=== PATIENT | male | born 1960 | race Caucasian/White ===

== ENCOUNTER 2016-04-06 17:56 | Emergency (ER) | payer OTHER ==
--- NOTE | 2016-04-06 18:43 | CT ---
CT BRAIN: DATE: 04/06/16. PROVIDED CLINICAL HISTORY: Headache and confusion. FINDINGS: The ventricular system appears normal in size and morphology. There is no evidence for intracranial hemorrhage or mass effect. The extracranial soft tissues and osseous structures demonstrate no acu te abnormality. IMPRESSION: No evidence for intracranial hemorrhage or mass effect. POS: KATHARINE
[2016-04-06] MEDS ORDERED: Labetalol HCl 100 MG/20 ML VIAL ONE (18:48)
[2016-04-06 18:49] LABS: #Basophils 0.1 thou/uL (0.0-0.2); #Eosinphils 0.2 thou/uL (0.0-0.7); #Lymphocytes 2.1 thou/uL (1.20-3.40); #Monocytes 0.7 thou/uL (0.11-0.59); #Neutrophils 7.9 thou/uL (1.40-6.50); %Basophils 1.3 % (0.0-1.0); %Lymphocytes 18.8 % (21.0-51.0); Hematocrit 44.9 % (42.0-52.0); Mean Platelet Volume 8.8 fL (7.4-10.4); Red Blood Cell (RBC) Count 5.09 mill/uL (4.70-6.10)
[2016-04-06 19:11] LABS: ALT (SGPT) 20 U/L (0-55); AST (SGOT) 14 U/L (5-34); Alkaline Phosphatase 79 U/L (40-150); Anion Gap 17 mmol/L (10-20); BUN (Urea Nitrogen) 12 mg/dL (8.4-25.7); Bilirubin, Total 1.2 mg/dL (0.2-1.2); Calc. Creatinine Clearance 0 mL/min (70-130); Carbon Dioxide 23 mmol/L (22-29); Chloride 102 mmol/L (98-107); Estimated GFR-MDRD Greater than 90; Globulin 3.2 g/dL (2.4-3.5); Protein, Total 7.2 g/dL (6.0-8.3)
[2016-04-06 19:12] LABS: Troponin I 0.025 ng/mL (< 0.028)
--- NOTE | 2016-04-06 20:20 | ERRECORD ---
[facility] EMERGENCY RECORD HPI CVA (19:01 BPIC) CHIEF COMPLAINT: Patient presents for evaluation of confusion, Patient presents for evaluation of speech difficulties. HISTORIAN: History provided by patient, pt woke up this morning and went to work and felt confused throughout the morning. One client spoke to him on the phone, then called the patient's daughter to tell her to check on her dad because he was confused. He took 6 aspirin this morning because of the symptoms and then went to sleep. when he awoke, his headache was slightly better, but still felt confused. He continues to have a headache. no motor or sensory complaints, but daughters state that he still is confused. TIME COURSE: Sudden onset of symptoms, There has been no change in the patient's symptoms over time. NIHSS: CVA assessment findings: Level of consciousness: alert, keenly responsive (0), Questions: answers both questions correctly (0), Commands: performs both tasks correctly (0), Best gaze: normal (0), Visual: no visual loss (0), Facial palsy: normal symmetrical movement (0), Motor Left Arm: no drift, arm stays 90/45 degrees for full 10 seconds (0), Motor Right Arm: no drift, arm stays 90/45 degrees for full 10 seconds (0), Motor left leg: no drift, leg stays at 30 degrees for full five seconds (0), Motor right leg: no drift, leg stays at 30 degrees for full five seconds (0), Limb ataxia: present in one limb (1), Sensory: normal, no sensory loss (0), Best language: mild to moderate aphasia; some obvious loss of fluency or facility of comprehension without significant limitation on ideas expressed or form of expression. Reduction of speech and/or comprehension, however, makes conversation about provided material difficult or impossible (1), Dysarthria: mild to moderate: patient slurs at least some words and, at worst, can be understood with some difficulty (1), Extinction and Inattention: normal (0), Total score 3. CRITICAL CARE: Time spent providing critical care to patient was 30-74 minutes, 35 minutes, labetalol given for hypertension and confusion with possibility of irreversible damage to brain. asa was taken prior to arrival. ROS (19:10 BPIC) CONSTITUTIONAL: Negative constitutional review of systems, Historian denies chills, denies fever. EYES: Negative eye review of systems. ENT: Negative ears, nose, throat review of systems. CARDIOVASCULAR: Negative cardiovascular review of systems, Historian denies chest pain, denies palpitations. RESPIRATORY: Negative respiratory review of systems, Historian denies cough, denies shortness of breath. GI: Negative gastrointestinal review of systems, Historian denies abdominal pain, denies constipation, denies diarrhea. MUSCULOSKELETAL: Negative musculoskeletal review of systems. SKIN: Negative skin review of systems. &a-1R&a+25V*p+0X*[id number]*c202B*c15G*c2P*p-0X&a-25V&a+1R Name: Kan Garcia : 1960 M55 MedRec: [id number] AcctNum: [id number] Prepared: MonApr 06, 2016 21:52 by Interface Page 1 of 4 pMD [facility] EMERGENCY RECORD NEUROLOGIC: Historian reports confusion, reports dysphasia, reports headache. ENDOCRINE: Negative endocrine review of systems. HEMO/LYMPHATIC: Normal hematologic/lymphatic system review. PSYCHIATRIC: Negative psychiatric review of systems. NOTES: All other ROS is negative except as listed in HPI. PAST MEDICAL HISTORY MEDICAL HISTORY: Flu vaccine not up to date, Tetanus not up to date, Pneumococcal vaccine not up to date, Past medical history includes history of hypertension. (18:05 MSPE) MALE SURGICAL HISTORY: Patient has no surgical history. (18:05 MSPE) PSYCHIATRIC HISTORY: No previous psychiatric history. (18:05 MSPE) SOCIAL HISTORY: Patient drinks socially, Patient denies drug use, Patient currently uses tobacco, chews tobacco. (18:05 MSPE) NOTES: I have reviewed and agree with the PMH/PSxH/FamHx/SocHx obtained by the nurse. (19:10 BPIC) KNOWN ALLERGIES No Known Drug Allergies CURRENT MEDICATIONS (18:01 MSPE) None VITAL SIGNS VITAL SIGNS: BP: 199/133, Pulse: 98, Resp: 21, Temp: 99.5 (Oral), Pain: 8, O2 sat: 96 on Room Air, Time: 04/06/2016 18:02. (18:02 MSPE) BP: 210/114, Pulse: 98, Resp: 23, O2 sat: 96 on Room Air, Time: 04/06/2016 18:34. (18:34 MSPE) BP: 205/115, Pulse: 97, Resp: 20, O2 sat: 96 on Room Air, Time: 04/06/2016 18:50. (18:50 MSPE) BP: 194/109, Pulse: 94, Resp: 22, O2 sat: 95 on Room Air, Time: 04/06/2016 19:00. (19:00 EPIE) BP: 194/109, Pulse: 92, Resp: 22, O2 sat: 96 on Room Air, Time: 04/06/2016 19:10. (19:10 EPIE) BP: 205/115, Pulse: 95, Resp: 22, O2 sat: 95 on Room Air, Time: 04/06/2016 19:20. (19:20 EPIE) BP: 184/99, Pulse: 90, Resp: 22, O2 sat: 96 on Room Air, Time: 04/06/2016 19:45. (19:45 EPIE) Temp: 98.9 (Oral), Pain: 5, Time: 04/06/2016 20:00. (20:00 EPIE) PHYSICAL EXAM (19:10 BPIC) CONSTITUTIONAL: Vital signs reviewed, Patient appears non toxic, Patient alert and oriented to person, place and time, Pt is in no apparent distress. HEAD: Head exam included findings of head atraumatic, &a-1R&a+25V*p+0X*[id number]*c202B*c15G*c2P*p-0X&a-25V&a+1R Name: Kan Garcia : 1960 M55 MedRec: [id number] AcctNum: [id number] Prepared: MonApr 06, 2016 21:52 by Interface Page 2 of 4 pMD [facility] EMERGENCY RECORD normocephalic. EYES: Eye exam included findings of eyelids normal to inspection, Pupils equally round and reactive to light, Extraocular muscles intact. ENT: ENT exam normal, Nose exam normal, no nasal deformity, no bleeding from nares, Pharynx exam normal, Mouth exam normal, mucous membranes moist. NECK: Neck exam included findings of normal range of motion, Trachea midline. RESPIRATORY CHEST: Respiratory and chest exam normal, Breath sounds clear, No wheezing, No rales, Chest exam included findings of chest movement symmetrical, Chest expansion equal. CARDIOVASCULAR: Cardiovascular assessment normal, Cardiovascular exam included findings of heart rate regular rate and rhythm, Heart sounds normal. ABDOMEN MALE: Abdominal exam included findings of abdomen nontender, Bowel sounds normal, no mass, no pulsatile masses, no peritoneal signs, no rigidity, no guarding, no rebound. BACK: Back exam included findings of normal inspection, range of motion normal, no costovertebral angle tenderness. UPPER EXTREMITY: Upper extremity exam included findings of inspection normal, Range of motion normal. LOWER EXTREMITY: Lower extremity exam included findings of inspection normal, Range of motion normal. NEURO: Neuro exam findings include patient oriented to person, place and time, Speech, slurred, with expressive aphasia, difficulty finding correct words, Cerebellar deficits include, Finger to nose abnormal, left arm with intention tremor, Neuro exam findings include patient oriented to person, place and time, no focal motor deficits, no focal sensory deficits. SKIN: Skin exam included findings of skin warm, dry, and normal in color. LYMPHATIC: Lymphatic exam normal. PSYCHIATRIC: Psychiatric exam included findings of patient oriented to person place and time, Normal affect. EKG INTERPRETATION (21:48 BPIC) 12 LEAD EKG INTERPRETATION: 12 lead EKG shows normal sinus rhythm, Rate (beats per minute): 96, with no ectopics, ST segments normal, Other findings include:, left ventricular hypertrophy, left atrial enlargement, prolonged QTc, Clinical impression:, non-specific EKG. RADIOLOGYINTERPRETATION (21:48 BPIC) HEAD: Head CT negative, without contrast. MEDICATION ADMINISTRATION SUMMARY Drug Name: labetalol intravenous, Dose Ordered: 10 mg, Route: IV &a-1R&a+25V*p+0X*[id number]*c202B*c15G*c2P*p-0X&a-25V&a+1R Name: Kan Garcia : 1960 M55 MedRec: [id number] AcctNum: [id number] Prepared: MonApr 06, 2016 21:52 by Interface Page 3 of 4 pMD [facility] EMERGENCY RECORD Push, Status: Given, Time: 18:54 04/06/2016, Detailed record available in Medication Service section. DOCTOR NOTES (19:41 BPIC) TEXT: ANAIS Sanders, ERMD accepted transfer. Need for neuro services. not a tpa candidate because outside of time window Diagnosis and plan have been discussed with the patient. The patient understands the treatment plan and all questions have been answered. A transfer will be done to a facility that has a higher level of care and additional media sales consultant capabilities. PROBLEM LIST No recorded problems DIAGNOSIS (19:41 BPIC) FINAL: PRIMARY: slurred speech, ADDITIONAL: confusion, hypertension, rule out stroke. PRESCRIPTION No recorded prescriptions DISPOSITION PATIENT: Disposition Type: Transfer, Disposition: Transfer to [facility], Condition: Guarded. (19:41 BPIC) Patient left the department. (20:08 EPIE) Bellamy: BPIC=MD Alfredo, Taj EPIE=ITALO Barrett, Haritha MSPE=ITALO Corbin, Paulina &a-1R&a+25V*p+0X*[id number]*c202B*c15G*c2P*p-0X&a-25V&a+1R Name: Kan Garcia : 1960 M55 MedRec: [id number] AcctNum: [id number] Prepared: MonApr 06, 2016 21:52 by Interface Page 4 of 4 pMD MTDD
--- NOTE | 2016-04-06 20:23 | PICIS ---
[facility] EMERGENCY RECORD TRIAGE (18:00 MSPE) TRIAGE NOTES: sts started feeling bad at 0800 today. Reports "bad headache" and nausea. (18:00 MSPE) PATIENT: NAME: Kan Garcia, AGE: 55, GENDER: male, : Josie 1960, TIME OF GREET: MonApr 06, 2016 17:57, PREFERRED LANGUAGE: Thai, ECODE BILLING MAP: [facility], SSN: [id number], Zip Code: [address], KG WEIGHT: [phone], PHONE: , , , PERSON ID: [id number], PCP: none. (18:00 MSPE) COMPLAINT: CONFUSION,SLURRED SPEECH. (18:00 MSPE) ADMISSION: URGENCY: 3 Urgent, ADMISSION SOURCE: Home, TRANSPORT: CAR, BED: ER -02. (18:00 MSPE) TREATMENTS IN PROGRESS: Treatments given Prehospital: pt sts has taken 6 Aspirin throughout the day for his CORTEZ. (18:34 MSPE) PROVIDERS: TRIAGE NURSE: Paulina Corbin RN. (18:00 MSPE) VITAL SIGNS: BP 199/133, Pulse 98, Resp 21, Temp 99.5, (Oral), Pain 8, O2 Sat 96, on Room Air, Time 04/06/2016 18:02. (18:02 MSPE) KNOWN ALLERGIES No Known Drug Allergies CURRENT MEDICATIONS (18:01 MSPE) None VITAL SIGNS VITAL SIGNS: BP: 199/133, Pulse: 98, Resp: 21, Temp: 99.5 (Oral), Pain: 8, O2 sat: 96 on Room Air, Time: 04/06/2016 18:02. (18:02 MSPE) BP: 210/114, Pulse: 98, Resp: 23, O2 sat: 96 on Room Air, Time: 04/06/2016 18:34. (18:34 MSPE) BP: 205/115, Pulse: 97, Resp: 20, O2 sat: 96 on Room Air, Time: 04/06/2016 18:50. (18:50 MSPE) BP: 194/109, Pulse: 94, Resp: 22, O2 sat: 95 on Room Air, Time: 04/06/2016 19:00. (19:00 EPIE) BP: 194/109, Pulse: 92, Resp: 22, O2 sat: 96 on Room Air, Time: 04/06/2016 19:10. (19:10 EPIE) BP: 205/115, Pulse: 95, Resp: 22, O2 sat: 95 on Room Air, Time: 04/06/2016 19:20. (19:20 EPIE) BP: 184/99, Pulse: 90, Resp: 22, O2 sat: 96 on Room Air, Time: 04/06/2016 19:45. (19:45 EPIE) Temp: 98.9 (Oral), Pain: 5, Time: 04/06/2016 20:00. (20:00 EPIE) NURSING ASSESSMENT: CVA ASSESSMENT TOOL NIHSS: CVA assessment findings: Level of consciousness: alert, keenly responsive (0), Questions: answers one question correctly (1), Commands: performs both tasks correctly (0), Best gaze: normal (0), Visual: no visual loss (0), Facial palsy: normal symmetrical movement (0), Motor Left Arm: no drift, arm stays 90/45 degrees for full 10 seconds (0), Motor Right Arm: no drift, arm stays 90/45 degrees for full 10 seconds (0), Motor left leg: no drift, leg stays at 30 degrees for full five seconds (0), Motor right leg: no &a-1R&a+25V*p+0X*l3487N*c202B*c15G*c2P*p-0X&a-25V&a+1R Name: Kan Garcia : 1960 M55 MedRec: [id number] AcctNum: [id number] Prepared: MonApr 06, 2016 21:52 by Interface Page 1 of 11 pMD [facility] EMERGENCY RECORD drift, leg stays at 30 degrees for full five seconds (0), Limb ataxia absent (0), Sensory: normal, no sensory loss (0), Best language: mild to moderate aphasia; some obvious loss of fluency or facility of comprehension without significant limitation on ideas expressed or form of expression. Reduction of speech and/or comprehension, however, makes conversation about provided material difficult or impossible (1), Dysarthria: mild to moderate: patient slurs at least some words and, at worst, can be understood with some difficulty (1), Extinction and Inattention: normal (0), Total score 3. (18:05 MSPE) CVA assessment findings: Level of consciousness: alert, keenly responsive (0), Questions: answers both questions correctly (0), Commands: performs both tasks correctly (0), Best gaze: normal (0), Visual: no visual loss (0), Facial palsy: normal symmetrical movement (0), Motor Left Arm: no drift, arm stays 90/45 degrees for full 10 seconds (0), Motor Right Arm: no drift, arm stays 90/45 degrees for full 10 seconds (0), Motor left leg: no drift, leg stays at 30 degrees for full five seconds (0), Motor right leg: no drift, leg stays at 30 degrees for full five seconds (0), Limb ataxia absent (0), Sensory: mild to moderate sensory loss; patient feels pinprick is less sharp or is dull on the affected side; or there is a loss of superficial pain with pinprick, but patient is aware he/she is being touched (1), Best language: mild to moderate aphasia; some obvious loss of fluency or facility of comprehension without significant limitation on ideas expressed or form of expression. Reduction of speech and/or comprehension, however, makes conversation about provided material difficult or impossible (1), Dysarthria: mild to moderate: patient slurs at least some words and, at worst, can be understood with some difficulty (1), Extinction and Inattention: normal (0), Total score 3. (19:19 EPIE) ACUTE STROKE PROTOCOL: Onset of symptoms Greater than three hours:, NIHSS stroke scale completed. (18:05 MSPE) NURSING ASSESSMENT: DYSPHAGIA SCREENING (18:43 MSPE) SWALLOWING EVALUATION: Patient clear for swallowing evaluation; no positive responses, Swallowing evaluation approved by Dr. Fuentes, Following administration of 3 ounces of water by a cup, patient exhibited no signs or symptoms of aspiration, passed evaluation. NURSING ASSESSMENT: FALL RISK (19:26 EPIE) FALL RISK: Fall risk assessment findings include: no history of falls (0), No bed rest greater than 2 days (0), No use of level of consciousness altering agents with mentation or cognitive changes (0), Change in blood pressure (1), No sensory deficits (0), No impaired mobility (0), Neurologic diagnosis (3), No elimination problems (0), Confusion (3), Total score 7, Fall risk. NURSING ASSESSMENT: NEURO (18:17 MSPE) &a-1R&a+25V*p+0X*s7326X*c202B*c15G*c2P*p-0X&a-25V&a+1R Name: Kan Garcia : 1960 M55 MedRec: [id number] AcctNum: [id number] Prepared: MonApr 06, 2016 21:52 by Interface Page 2 of 11 pMD [facility] EMERGENCY RECORD GCS: (6) Obeying command:, (5) Orientated:, (4) Spontaneous eye opening., Result: 15. CONSTITUTIONAL: Patient arrives, via hospital wheelchair, History obtained from, family member: daughter, Patient appears comfortable, Patient cooperative, Patient alert, Oriented to person, place and time, Skin warm, Skin dry, Skin normal in color. PAIN: sts has had a headache all day; started out on right side of head; now on left side, Onset of pain approx 0800 today. NEURO: Pupils equally round and reactive to light, Able to close eyes, Face symmetrical, Speech, answers questions; inappropriate words at times, e.g. says "apron" for "aspirin", Hand grasps equal, Notes: Daughter sts she rec'd phone call from a co-worker of pt this a.m. at 0915 who thought pt wasn't making sense during phone conversation. He "was fine" then, but when she checked on him this evening in five o'clock his words didn't make sense. SAFETY: Side rails up, Cart/Stretcher in lowest position, Family at bedside, Call light within reach, Hospital ID band on. NURSING ASSESSMENT: SKIN (19:26 EPIE) SKIN: Skin assessment findings include skin warm, Skin dry, Skin normal in color. NURSING PROCEDURE: BEDSIDE SIRS TESTING (19:01 EPIE) SCORES: Heart Rate 55-109 (0), Temp range 96.8-101.1 (0), respiratory rate 12-24 (0), Latest WBC 3-14.9 (0), Mental status altered: yes (1), Total SIRS Score 1, Infection or Suspected Infection: No. NURSING PROCEDURE: BEDSIDE TESTING (18:32 MSPE) GLUCOSE: Glucose testing indicated for confusion; hx of DM, Capillary blood sample, Result (mg/dl) 235. FOLLOW-UP: After procedure, results given to Dr. Fuentes. SAFETY: Side rails up, Cart/Stretcher in lowest position, Family at bedside, Call light within reach, Hospital ID band on. NURSING PROCEDURE: EKG CHART (18:26 MSPE) EKG: EKG indicated for confusion, 12 lead EKG performed on the left chest. FOLLOW-UP: After procedure, EKG for interpretation given to Dr. Fuentes. NURSING PROCEDURE: IV (18:32 MSPE) IV SITE 1: IV therapy indicated for hydration, IV therapy indicated for medication administration, IV established, to the right antecubital, using a 20 gauge catheter, in one attempt, IV site prepped with Chloraprep, Saline lock established, Flushed with normal saline (mls): 10, Labs drawn at time of placement, labeled in the presence of the patient and sent to lab. &a-1R&a+25V*p+0X*a1200E*c202B*c15G*c2P*p-0X&a-25V&a+1R Name: Kan Garcia : 1960 M55 MedRec: [id number] AcctNum: [id number] Prepared: MonApr 06, 2016 21:52 by Interface Page 3 of 11 [facility] EMERGENCY RECORD NURSING PROCEDURE: NURSE NOTES NURSES NOTES: Patient resting quietly, Shift change report given, Provided opportunity to answer questions, Bedside report to Haritha Millan RN. (18:55 MSPE) Notes: Report received from Paulina PUCKETT. Pt currently resting in bed with RR even and unlabored. NAD. Family at bedside. Awaiting acceptance from [facility]. (19:00 EPIE) Notes: Patient resting with RR even and unlabored. No new complaints at this time. Lights turned down for comfort. Awaiting transport to [facility]. (19:27 EPIE) NURSING PROCEDURE: TRANSFER (20:06 EPIE) TRANSFER: Reason for transfer need for specialized care, Diagnosis: R/O Stroke, Accepting institution: [facility], Accepting physician: Tommy CRAIG, Referring physician: Alfredo CRAIG, Transported by urgent ambulance, accompanied by emergency medical services personnel, Report called to receiving facility, Malissa PUCKETT, Bed assigned ER to ER, Summary of Care printed, Copy of patient record prepared for receiving facility, Patient consent for transfer signed, Family member contacted. BELONGINGS: Belongings and valuables with patient upon arrival to the Emergency Department include:, Belongings and valuables with patient at time of discharge include:, Belongings remain with patient, Valuables remain with patient. NURSING PROCEDURE: TRANSPORT TO TESTS TRANSPORT TO TESTS: Patient transported to CT scan, via cart, Accompanied by x-ray aviation technician aircraft. (18:14 MSPE) FOLLOW-UP: After procedure, patient returned to emergency department. (18:26 MSPE) ORDER DETAILS Order Name: BLOOD GLUCOSE MONITOR, Status: Done, Time: 18:36 04/06/2016, User: MAGNUS, - Ordered for: MD Fuentes Bryan, - Entered by: ITALO Corbin Marilyn - MonApr 06, 2016 18:25, - Quantity: 1, Order Name: JOB MOLDER ED, Status: Done, Time: 18:25 04/06/2016, User: MAGNUS, - Ordered for: MD Fuentes Bryan, - Entered by: ITALO Corbin Marilyn - [facility] Apr 06, 2016 18:25, - Quantity: 1, Order Name: Cardiac Profile w/CKMB & Troponin - I, Status: Active, Time: 18:41 04/06/2016, User: ROLLY, - Ordered for: MD Fuentes Bryan, - Entered by: MD Fuentes Bryan - MonApr 06, 2016 18:41, - Quantity: 1, Order Name: CBC with Differential, Status: Active, Time: 18:41 04/06/2016, User: BPIC, &a-1R&a+25V*p+0X*l4732F*c202B*c15G*c2P*p-0X&a-25V&a+1R Name: Kan Garcia : 1960 M55 MedRec: [id number] AcctNum: [id number] Prepared: MonApr 06, 2016 21:52 by Interface Page 4 of 11 D [facility] EMERGENCY RECORD - Ordered for: MD Fuentes Bryan, - Entered by: MD Fuentes Bryan - MonApr 06, 2016 18:41, - Quantity: 1, Order Name: Comprehensive Metabolic Panel, Status: Active, Time: 18:41 04/06/2016, User: BPIC, - Ordered for: MD Fuentes Bryan, - Entered by: MD Fuentes Bryan - MonApr 06, 2016 18:41, - Quantity: 1, Order Name: CT Brain WO Con, Status: Active, Time: 00:00 04/06/2016, User: BPROM, - Ordered for: MD Fuentes Bryan, - Entered by: MD Fuentes Bryan - MonApr 06, 2016, - Quantity: 1, Order Name: DYSPHAGIA SCREEN, Status: Done, Time: 18:55 04/06/2016, User: MAGNUS, - Ordered for: MD Fuentes Bryan, - Entered by: MD Fuentes Bryan - MonApr 06, 2016 18:42, - Quantity: 1, Order Name: EKG 12 Lead in Emergency Room, Status: Active, Time: 18:25 04/06/2016, User: MAGNUS, - Ordered for: MD Fuentes Bryan, - Entered by: ITALO Corbin, Paulina - MonApr 06, 2016 18:25, - Quantity: 1, Order Name: ERRT Pulse Oximeter ER, Status: Active, Time: 18:25 04/06/2016, User: MAGNUS, - Ordered for: MD Fuentes Bryan, - Entered by: ITALO Corbin, Paulina - MonApr 06, 2016 18:25, - Quantity: 1, Order Name: NIHSS, Status: Done, Time: 18:44 04/06/2016, User: MAGNUS, - Ordered for: MD Fuentes Bryan, - Entered by: MD Fuentes Bryan - MonApr 06, 2016 18:42, - Quantity: 1. MEDICATION ADMINISTRATION SUMMARY Drug Name: labetalol intravenous, Dose Ordered: 10 mg, Route: IV Push, Status: Given, Time: 18:54 04/06/2016, Detailed record available in Medication Service section. MEDICATION SERVICE (18:54 [facility]) labetalol intravenous: Order: labetalol intravenous (labetalol HCl) - Dose: 10 mg : IV Push Schedule: Now Ordered by: Taj Fuentes MD Entered by: Taj Fuentes MD MonApr 06, 2016 18:42 Documented as given by: Paulina Corbin RN MonApr 06, 2016 18:54 Patient, Medication, Dose, Route and Time verified prior to administration. Amount given: 10mg, IV SITE #1 IVP, initial medication, Slowly, Awake and alert- acceptable, Connections checked prior to &a-1R&a+25V*p+0X*h3868V*c202B*c15G*c2P*p-0X&a-25V&a+1R Name: Kan Garcia : 1960 M55 MedRec: [id number] AcctNum: [id number] Prepared: MonApr 06, 2016 21:52 by Interface Page 5 of 11 pMD [facility] EMERGENCY RECORD administration, Line traced prior to administration, Catheter placement confirmed via flush prior to administration, IV site without signs or symptoms of infiltration during medication administration, No swelling during administration, No drainage during administration, IV flushed after administration, Correct patient, time, route, dose and medication confirmed prior to administration, Patient advised of actions and side-effects prior to administration, Allergies confirmed and medications reviewed prior to administration, Patient in position of comfort, Side rails up, Cart in lowest position, Family at bedside. HPI CVA (19:01 [facility]) CHIEF COMPLAINT: Patient presents for evaluation of confusion, Patient presents for evaluation of speech difficulties. HISTORIAN: History provided by patient, pt woke up this morning and went to work and felt confused throughout the morning. One client spoke to him on the phone, then called the patient's daughter to tell her to check on her dad because he was confused. He took 6 aspirin this morning because of the symptoms and then went to sleep. when he awoke, his headache was slightly better, but still felt confused. He continues to have a headache. no motor or sensory complaints, but daughters state that he still is confused. TIME COURSE: Sudden onset of symptoms, There has been no change in the patient's symptoms over time. NIHSS: CVA assessment findings: Level of consciousness: alert, keenly responsive (0), Questions: answers both questions correctly (0), Commands: performs both tasks correctly (0), Best gaze: normal (0), Visual: no visual loss (0), Facial palsy: normal symmetrical movement (0), Motor Left Arm: no drift, arm stays 90/45 degrees for full 10 seconds (0), Motor Right Arm: no drift, arm stays 90/45 degrees for full 10 seconds (0), Motor left leg: no drift, leg stays at 30 degrees for full five seconds (0), Motor right leg: no drift, leg stays at 30 degrees for full five seconds (0), Limb ataxia: present in one limb (1), Sensory: normal, no sensory loss (0), Best language: mild to moderate aphasia; some obvious loss of fluency or facility of comprehension without significant limitation on ideas expressed or form of expression. Reduction of speech and/or comprehension, however, makes conversation about provided material difficult or impossible (1), Dysarthria: mild to moderate: patient slurs at least some words and, at worst, can be understood with some difficulty (1), Extinction and Inattention: normal (0), Total score 3. CRITICAL CARE: Time spent providing critical care to patient was 30-74 minutes, 35 minutes, labetalol given for hypertension and confusion with possibility of irreversible damage to brain. asa was taken prior to arrival. ROS (19:10 BPIC) CONSTITUTIONAL: Negative constitutional review of systems, &a-1R&a+25V*p+0X*z7988M*c202B*c15G*c2P*p-0X&a-25V&a+1R Name: Kan Garcia : 1960 M55 MedRec: [id number] AcctNum: [id number] Prepared: MonApr 06, 2016 21:52 by Interface Page 6 of 11 pMD [facility] EMERGENCY RECORD Historian denies chills, denies fever. EYES: Negative eye review of systems. ENT: Negative ears, nose, throat review of systems. CARDIOVASCULAR: Negative cardiovascular review of systems, Historian denies chest pain, denies palpitations. RESPIRATORY: Negative respiratory review of systems, Historian denies cough, denies shortness of breath. GI: Negative gastrointestinal review of systems, Historian denies abdominal pain, denies constipation, denies diarrhea. MUSCULOSKELETAL: Negative musculoskeletal review of systems. SKIN: Negative skin review of systems. NEUROLOGIC: Historian reports confusion, reports dysphasia, reports headache. ENDOCRINE: Negative endocrine review of systems. HEMO/LYMPHATIC: Normal hematologic/lymphatic system review. PSYCHIATRIC: Negative psychiatric review of systems. NOTES: All other ROS is negative except as listed in HPI. PAST MEDICAL HISTORY MEDICAL HISTORY: Flu vaccine not up to date, Tetanus not up to date, Pneumococcal vaccine not up to date, Past medical history includes history of hypertension. (18:05 MSPE) MALE SURGICAL HISTORY: Patient has no surgical history. (18:05 MSPE) PSYCHIATRIC HISTORY: No previous psychiatric history. (18:05 MSPE) SOCIAL HISTORY: Patient drinks socially, Patient denies drug use, Patient currently uses tobacco, chews tobacco. (18:05 MSPE) NOTES: I have reviewed and agree with the PMH/PSxH/FamHx/SocHx obtained by the nurse. (19:10 BPIC) PHYSICAL EXAM (19:10 BPIC) CONSTITUTIONAL: Vital signs reviewed, Patient appears non toxic, Patient alert and oriented to person, place and time, Pt is in no apparent distress. HEAD: Head exam included findings of head atraumatic, normocephalic. EYES: Eye exam included findings of eyelids normal to inspection, Pupils equally round and reactive to light, Extraocular muscles intact. ENT: ENT exam normal, Nose exam normal, no nasal deformity, no bleeding from nares, Pharynx exam normal, Mouth exam normal, mucous membranes moist. NECK: Neck exam included findings of normal range of motion, Trachea midline. RESPIRATORY CHEST: Respiratory and chest exam normal, Breath sounds clear, No wheezing, No rales, Chest exam included findings of chest movement symmetrical, Chest expansion equal. &a-1R&a+25V*p+0X*o6161Y*c202B*c15G*c2P*p-0X&a-25V&a+1R Name: Kan Garcia : 1960 M55 MedRec: [id number] AcctNum: [id number] Prepared: MonApr 06, 2016 21:52 by Interface Page 7 of 11 pMD [facility] EMERGENCY RECORD CARDIOVASCULAR: Cardiovascular assessment normal, Cardiovascular exam included findings of heart rate regular rate and rhythm, Heart sounds normal. ABDOMEN MALE: Abdominal exam included findings of abdomen nontender, Bowel sounds normal, no mass, no pulsatile masses, no peritoneal signs, no rigidity, no guarding, no rebound. BACK: Back exam included findings of normal inspection, range of motion normal, no costovertebral angle tenderness. UPPER EXTREMITY: Upper extremity exam included findings of inspection normal, Range of motion normal. LOWER EXTREMITY: Lower extremity exam included findings of inspection normal, Range of motion normal. NEURO: Neuro exam findings include patient oriented to person, place and time, Speech, slurred, with expressive aphasia, difficulty finding correct words, Cerebellar deficits include, Finger to nose abnormal, left arm with intention tremor, Neuro exam findings include patient oriented to person, place and time, no focal motor deficits, no focal sensory deficits. SKIN: Skin exam included findings of skin warm, dry, and normal in color. LYMPHATIC: Lymphatic exam normal. PSYCHIATRIC: Psychiatric exam included findings of patient oriented to person place and time, Normal affect. EVENTS TRANSFER: Triage to Emergency Emergency Room -02. (MonApr 06, 2016 18:00 MSPE) Removed from Emergency Emergency Room -02. (20:08 EPIE) RADIOLOGYINTERPRETATION (21:48 BPIC) HEAD: Head CT negative, without contrast. EKG INTERPRETATION (21:48 BPIC) 12 LEAD EKG INTERPRETATION: 12 lead EKG shows normal sinus rhythm, Rate (beats per minute): 96, with no ectopics, ST segments normal, Other findings include:, left ventricular hypertrophy, left atrial enlargement, prolonged QTc, Clinical impression:, non-specific EKG. DOCTOR NOTES (19:41 BPIC) TEXT: ANAIS Sanders, ERMD accepted transfer. Need for neuro services. not a tpa candidate because outside of time window Diagnosis and plan have been discussed with the patient. The patient understands the treatment plan and all questions have been answered. A transfer will be done to a facility that has a higher level of care and additional application consultant capabilities. PROBLEM LIST &a-1R&a+25V*p+0X*o3012D*c202B*c15G*c2P*p-0X&a-25V&a+1R Name: Kan Garcia : 1960 M55 MedRec: [id number] AcctNum: [id number] Prepared: MonApr 06, 2016 21:52 by Interface Page 8 of 11 pMD [facility] EMERGENCY RECORD No recorded problems DIAGNOSIS (19:41 BPIC) FINAL: PRIMARY: slurred speech, ADDITIONAL: confusion, hypertension, rule out stroke. DISPOSITION PATIENT: Disposition Type: Transfer, Disposition: Transfer to [facility], Condition: Guarded. (19:41 BPIC) Patient left the department. (20:08 EPIE) PRESCRIPTION No recorded prescriptions IMAGING *MEMORANDUM OF TRANSFER: Image captured from scanner. (19:21 LEEW) TRANSFER CONSENT: Image captured from scanner. (19:22 LEEW) *EKG: Image captured from scanner. (19:57 EPIE) *SUPPLY CHARGE SHEET: Image captured from scanner. (20:08 EPIE) ADMIN DIGITAL SIGNATURE: MD Fuentes Bryan. (19:42 BPIC) MD Fuentes Bryan. (21:49 BPIC) MD Fuentes Bryan. (21:49 BPIC) RESULTS RADIOLOGY: CT Brain WO Con Observe DT: MonApr 06, 2016 18:25, BR CT BRAIN: DATE: 04/06/16. PROVIDED CLINICAL HISTORY: Headache and confusion. FINDINGS: The ventricular system appears normal in size and morphology. There is no evidence for intracranial hemorrhage or mass effect. The extracranial soft tissues and osseous structures demonstrate no acu te abnormality. IMPRESSION: No evidence for intracranial hemorrhage or mass effect. POS: [facility] . (18:59 BPIC) LABORATORY: CBC with Differential Collection DT: MonApr 06, 2016 18:46, &a-1R&a+25V*p+0X*e0337M*c202B*c15G*c2P*p-0X&a-25V&a+1R Name: Kan Garcia : 1960 M55 MedRec: [id number] AcctNum: [id number] Prepared: MonApr 06, 2016 21:52 by Interface Page 9 of 11 pMD [facility] EMERGENCY RECORD *White Blood Cell (WBC) Count 11.0 - H thou/uL, Range (4.8-10.8), Red Blood Cell (RBC) Count 5.09 mill/uL, Range (4.70-6.10), Hemoglobin 15.9 g/dL, Range (14.0-18.0), Hematocrit 44.9 %, Range (42.0-52.0), Mean Corpuscular Volume 88.4 fl, Range (80.0-94.0), *Mean Corpuscular Hemoglobin 31.2 - H pg, Range (27.0-31.0), Mean Corpuscular HGB CONC 35.3 g/dL, Range (32.0-36.0), *RBC Distribution Width 11.2 - L %, Range (11.5-14.5), Platelet Count 162 thou/uL, Range (130-400), Mean Platelet Volume 8.8 fL, Range (7.4-10.4), %Neutrophils 71.9 %, Range (42.0-75.0), *%Lymphocytes 18.8 - L %, Range (21.0-51.0), %Monocytes 6.0 %, Range (0.0-10.0), %Eosinophils 2.0 %, Range (0.0-10.0), *%Basophils 1.3 - H %, Range (0.0-1.0), *#Neutrophils 7.9 - H thou/uL, Range (1.40-6.50), #Lymphocytes 2.1 thou/uL, Range (1.20-3.40), *#Monocytes 0.7 - H thou/uL, Range (0.11-0.59), #Eosinphils 0.2 thou/uL, Range (0.0-0.7), #Basophils 0.1 thou/uL, Range (0.0-0.2). (18:59 BPIC) Accuchek Collection DT: MonApr 06, 2016 18:40, *Accuchek 235 - H mg/dL, Range (70-110). (18:59 BPIC) Cardiac Profile w/CKMB & TropI Collection DT: MonApr 06, 2016 18:46, CKMB 1.0 ng/mL, Range (0-6.6), Troponin I 0.025 ng/mL, Range (< 0.028), Reference Range , 0.00 - 0.028 ng/mL Negative 0.029 - 0.29 ng/mL , Indeterminate Greater or Equal to 0.3 ng/mL Strongly suggests MO , . (19:41 BPIC) Comprehensive Metabolic Panel Collection DT: MonApr 06, 2016 18:50, Sodium 138 mmol/L, Range (136-145), Potassium 3.6 mmol/L, Range (3.5-5.1), Chloride 102 mmol/L, Range (98-107), Carbon Dioxide 23 mmol/L, Range (22-29), Anion Gap 17 mmol/L, Range (10-20), BUN (Urea Nitrogen) 12 mg/dL, Range (8.4-25.7), Creatinine 0.84 mg/dL, Range (0.7-1.3), Estimated GFR-MDRD Greater than 90 , Reference Range for Estimated GFR: Greater than 90, mL/min/1.73 m2 NOTE: The MDRD equation has not been validated for use, with the elderly (over 70 years of age), women, patients with, serious comorbid condition or persons with extremes of body size, muscle, mass, or nutritional status. , *Glucose 257 - H mg/dL, Range (70-105), &a-1R&a+25V*p+0X*e5295V*c202B*c15G*c2P*p-0X&a-25V&a+1R Name: Kan Garcia : 1960 M55 MedRec: [id number] AcctNum: [id number] Prepared: MonApr 06, 2016 21:52 by Interface Page 10 of 11 pMD [facility] EMERGENCY RECORD Calcium 9.0 mg/dL, Range (7.8-10.44), Bilirubin, Total 1.2 mg/dL, Range (0.2-1.2), Protein, Total 7.2 g/dL, Range (6.0-8.3), NOTE: Plasma values are generally 0.3 to 0.5 g/dL higher than serum values, due to the presence of fibrinogen. , Albumin 4.0 g/dL, Range (3.5-5.0), Globulin 3.2 g/dL, Range (2.4-3.5), Alb/Glob Ratio 1.3 g/dL, Range (1.2-2.2), Alkaline Phosphatase 79 U/L, Range (40-150), AST (SGOT) 14 U/L, Range (5-34), ALT (SGPT) 20 U/L, Range (0-55). (19:41 BPIC) Bellamy: BPIC=MD Alfredo, Taj EPIJoshua=ITALO Barrett, Haritha HAMILTON=ITALO Marquez, Mike MSPE=ITALO Corbin, Paulina &a-1R&a+25V*p+0X*j7726A*c202B*c15G*c2P*p-0X&a-25V&a+1R Name: Kan Garcia : 1960 M55 MedRec: [id number] AcctNum: [id number] Prepared: MonApr 06, 2016 21:52 by Interface Page 11 of 11 pMD MTDD
== END 2016-04-06 20:00 | disposition short-term general hospital (02) ==
LOC: NAV ERS 17:56
DX: I10 Essential (primary) hypertension (principal); R47.81 Slurred speech; F17.220 Nicotine dependence, chewing tobacco, uncomplicated
CPT/HCPCS: 36416; 70450; 80053; 82553; 84484; 85025; 93005; 94760; 96374